=== PATIENT | female | born 1980 | race Hispanic/Latino ===

== ENCOUNTER 2025-04-18 06:42 | Day surgery (SDC) | payer BC ==
[2025-04-14 11:44] LABS: BASOPHILS # (AUTO) 0.03 K/uL (0.00-0.20); BASOPHILS % (AUTO) 0.3 % (0.0-5.0); EOSINOPHILS # (AUTO) 0.03 K/uL (0.00-0.70); EOSINOPHILS % (AUTO) 0.3 % (0.0-8.0); HEMATOCRIT 41.4 % (36-48); IMMATURE GRANULOCYTE ABSOLUTE 0.02 K/uL (0-1); LYMPHOCYTES # (AUTO) 2.1 K/uL (1.0-4.8); LYMPHOCYTES % (AUTO) 24.7 % (21.0-51.0); MEAN CORPUSCULAR HEMOGLOBIN 29.3 pg (27.0-33.0); MEAN CORPUSCULAR HGB CONC 32.9 g/dL (32.0-36.0); MEAN CORPUSCULAR VOLUME 89.2 fL (79-99); MONOCYTES # (AUTO) 0.5 K/uL (0.1-1.0); NEUTROPHILS # (AUTO) 5.9 K/uL (1.8-7.7); NEUTROPHILS % (AUTO) 68.5 % (40.0-77.0); PLATELET COUNT (AUTO) 288 K/uL (130-400); RED BLOOD CELL COUNT(AUTO) 4.64 MIL/uL (4.00-5.50); RED CELL DISTRIBUTION WIDTH 12.9 % (11.0-15.5); WHITE BLOOD COUNT (AUTO) 8.7 K/uL (4.8-10.8)
[2025-04-14 11:46] LABS: APPEARANCE,URINE CLEAR (CLEAR); BILIRUBIN,URINE NEGATIVE (NEGATIVE); COLOR,URINE COLORLESS (YELLOW); GLUCOSE, URINE (UA) NEGATIVE (NEGATIVE); KETONES,URINE NEGATIVE (NEGATIVE); LEUKOCYTE ESTERASE ,URINE NEGATIVE Leu/uL (NEGATIVE); NITRATE,URINE NEGATIVE (NEGATIVE); PH,URINE 5.5 (5.0-8.0); PROTEIN,URINE NEGATIVE (NEGATIVE); UROBILINOGEN,URINE 0.2 mg/dL (0.2-1.0)
[2025-04-14 11:48] LABS: ADD UA MICROSCOPIC YES
[2025-04-14 11:53] LABS: RBC,URINE 0-1 /HPF (0-1); SQUAMOUS EPITHELIAL CELL,UR RARE /HPF (0-2)
[2025-04-14 11:59] LABS: ALBUMIN 3.7 g/dL (3.5-5.0); BILIRUBIN,TOTAL 0.3 mg/dL (0.2-1.0); CREATININE 0.6 mg/dL (0.5-1.0); POTASSIUM 4.5 mmol/L (3.5-5.1); TOTAL PROTEIN, SERUM 7.5 g/dL (6.0-8.3)
[2025-04-14 12:20] VITALS: BP 187/96; PULSE 60; RESP 18; TEMP 97.3
--- NOTE | 2025-04-14 13:49 | HMCIMG ---
CHEST 1VW HISTORY: Preop COMPARISON: None FINDINGS: A frontal projection of the chest was obtained. No acute pulmonary infiltrates is seen. The heart is borderline enlarged. No evidence of aortic calcification is seen. IMPRESSION: 1. No acute pulmonary infiltrate is seen.
[2025-04-18] VITALS (13 sets, daily range): BP systolic 93–126; BP diastolic 51–77; PULSE 54–81; RESP 10–18; TEMP 97–98.1
[~2025-04-18] VITALS: Ht 165.1 cm; Wt 96.3 kg
[~2025-04-18 06:42] MED LIST: FEXO180T94 PO; FLUT16H NS; MIEBO OU
[2025-04-18] MEDS: ceFAZolin SODIUM 2 GM VIAL ONE (07:13)
[2025-04-18] MEDS: LACTATED RINGERS 1000ML 1,000 ML IV ONE (07:13)
--- NOTE | 2025-04-18 08:45 | NUR ---
RT BREAST NEEDLE LOCALIZATION PATIENT ARRIVED TO RADIOLOGY. PROCEDURE AND RISKS EXPLAINED. PATIENT VERBALIZED UNDERSTANDING. RT BREAST PREPPED WITH STERILE TECHNIQUE. NEEDLE PLACED TO RT BREAST NODULE DONE BY DR DR Carlos BECKETT. PATIENT TOLERATED PROCEDURE WELL AND IMAGING STARTED IN MAMMOGRAPHY. TRANSPORTED TO OR HOLDING BED 4 VIA STRETCHER. REPORT GIVEN TO CASE CHAIDEZ. DENIES PAIN. A&O.
--- NOTE | 2025-04-18 09:03 | HMCIMG ---
US GUIDED BRST LOC/PERC 1ST IR HISTORY: Right breast nodule at 11:00 COMPARISON: 01/15/2025 TECHNIQUE: Informed consent was obtained. Risks and benefits were explained to the patient. A timeout was performed. Patient was prepped and draped in a sterile fashion. Local anesthetics was given as required. Under ultrasound guidance, right breast mass at 11:00 was localized. A hook wire and needle was advanced to the region of interest. At the end of the procedure, the hook wire was left in place. FINDINGS: Patient tolerated procedure without complication. Patient left the department in good condition. IMPRESSION: 1. Uncomplicated ultrasound-guided needle localization of right breast mass at 11:00
--- NOTE | 2025-04-18 09:47 | HMCIMG ---
PROCEDURE: MAMMO DX UNILATERAL RIGHT HISTORY: The aortic bifurcation COMPARISON: None TECHNIQUE: Right breast digital diagnostic mammogram with CAD was performed. No additional views were obtained. The study was performed for confirmation of needle localization. FINDINGS: The breasts are heterogeneously dense, which may obscure small masses. Hook wire is seen through the right breast nodule at 11:00. There is no evidence of a dominant mass, or suspicious microcalcification. There is no evidence of nipple retraction or skin thickening. IMPRESSION: 1. Hook wire is seen through the right breast nodule at 11:00.
[2025-04-18] MEDS ORDERED: LIDOCAINE PF 100MG/5ML (2%) SYRINGE 5ML ONE (10:04)
[2025-04-18] MEDS ORDERED: dexaMETHasone SOD PHOSPHATE 10MG/ML 1ML VIAL ONE (10:04)
[2025-04-18] MEDS ORDERED: MIDAZOLAM HCL 1 MG/ML 2ML VIAL ONE (10:05)
[2025-04-18] MEDS ORDERED: FENTanyl CITRate PF 50 MCG/1 ML 2ML VIAL ONE (10:05)
[2025-04-18] MEDS ORDERED: ondanSETRON 4MG INJ ONE (10:05)
[2025-04-18] MEDS ORDERED: proPOFol 10 MG/ML 20ML VIAL IV ONE (10:05)
[2025-04-18] MEDS ORDERED: phenylEPHRINE HCL 10 MG/ML 1ML VIAL IV ONE (10:32)
[2025-04-18] MEDS: BUPIvacaine/PF 0.25% 30ML VIAL IJ ONE (10:50)
[2025-04-18] MEDS ORDERED: ketOROlac 30MG VIAL (30MG/ML) ONE (11:12)
[2025-04-18] MEDS ORDERED: IBUP-2077 PO (12:31)
[2025-04-18] MEDS ORDERED: ACET-2079 PO (12:31)
--- NOTE | 2025-04-18 12:45 | NUR ---
BOTH PT AND SPOUSE GIVEN VERBAL AND WRITTEN DISCHARGE INSTRUCTIONS. IV REMOVED SITE ASYMPTOMATIC. PT TAKEN OUT VIA WHEELCHAIR SPOUSE DRIVING
--- NOTE | 2025-04-18 13:08 | HMCIMG ---
SURGICAL SPECIMEN REASON: RT BREAST SPECIMEN. COMPARISON: None TECHNIQUE: Soft tissue breast specimen x-ray was obtained. FINDINGS: There is evidence of microsurgical clip and wire in the specimen. IMPRESSION: Findings as described above.
--- NOTE | 2025-04-18 13:25 | OP ---
Operative Note: DATE OF PROCEDURE: 04/18/25 SURGEON: MARK PRASAD MD MANAGER STERILE: [] PREOPERATIVE DIAGNOSIS: Right breast 10:00 o'clock lesion with atypical cells POSTOPERATIVE DIAGNOSIS: Same PROCEDURE: Excisional biopsy of right breast with oncoplastic closure INDICATIONS: Patient with a biopsy that showed atypical cells and needed excision DESCRIPTION OF PROCEDURE: Patient is taken to the radiology suite where she had needle localization of the lesion. Once this was done by radiology she is brought to the operating room. She is placed on the operating table in a supine position. Once general endotracheal anesthesia is achieved patient's bilateral chest and breast are prepped and draped in sterile fashion. Using ultrasound guidance we confirmed the location of the clip in the direction of our guidewire. At the skin we marked the area that we were going to give us our clear margins. We then proceeded to create a hidden scar periareolar incision from the 9:00 to the 2:00 o'clock position on the upper aspect of the nipple. Dissected through the skin and subcutaneous tissue to expose breast tissue. We then created a skin flaps superiorly inferiorly and laterally that were thick . We identified our wire and follow did as it went on the 10 area a few cm away from the nipple-areolar complex. We dissected circumferentially around it and then posteriorly dissected all the way around it. We then excised the specimen completely with the wire as part of our specimen. We marked our specimen with short white suture medial margin, long white marked the lateral margin, long black alex the superficial margin, the short black alex the cephalad margin. We sent off the specimen to mammography to confirm we had good margins and that our clip was within our specimen. Hemostasis was obtained within the cavity. The the partial mastectomy defect was measured at 5 x 4 x 4 cm after we had excised our specimen. I then proceeded to create skin and subcutaneous skin flaps to release the breast tissue underneath to create tissue advancement flap for closure. I then released the breast tissue of the pectoralis fascia to create tissue advancement flap for the breast tissue. The length of the tunneling required was additional [] cm in each direction. Once the flaps were created I proceeded to alex the inside of the specimen cavity with metal clips, in case we have to return for reexcision we know where the cavity was located. I then proceeded to approximate the flaps in 3 layers using 2-0 Vicryl in interrupted fashion. The breast tissue was advanced 2 cm in each direction, and the subcutaneous tissue was advanced 2 cm in each direction. We then proceeded to do a deep dermal sutures as well with 3-0 Vicryl. And then proceeded to close the skin with a 4- 0 Monocryl in running subcuticular fashion. The total area of the advancement flap was 20 cm. Once we had heard back from mammography that we had the clip within our specimen with good margins we then proceeded to apply the Dermabond over top of our incision. All counts were correct x2 at the end of the procedure. Patient tolerated the procedure well. ESTIMATED BLOOD LOSS: Minimal Specimens: Right breast mass Complications: None immediate Devices left in place: None MARK PRASAD MD Apr 18, 2025 13:25
== END 2025-04-18 12:50 | disposition home or self-care (01) ==
LOC: DAH 06:42
PROVIDERS: ATTEND Student in an Organized Health Care Education/Training Program
DX: C50.811 Malignant neoplasm of overlapping sites of right female breast (principal); F41.9 Anxiety disorder, unspecified; Z79.84 Long term (current) use of oral hypoglycemic drugs; Z79.899 Other long term (current) drug therapy
CPT/HCPCS: 80053; 84703; 85025; 81001; 36415; 71045; 19301; 77065; 81025; 88307; 76098; 19285; A6260; J1885; A4663; J7120; J3010; J1100; J0665; J2003; J2250; J2704; J2405; J2371; J0690; C1819; A4930; A4649; A4215; A4223; A4222; A4221; J3490